=== PATIENT | female | born 1935 | race Caucasian/White ===

== ENCOUNTER → 2017-01-04 | Outpatient (REF) | payer MEDICARE, OTHER ==
[~2017-01-04] MED LIST: /ONDA4TA; ACET65TA; LIMBREL; LODINE; MACROBID; Metamucil; OMEP20TA7; PAXI20TA; PREG25CA; TRAM50TA2; TYLENOL #3; [UNRECOGNIZED DRUG - CODE]
[2017-01-04 15:12] LABS: BASO # 0.1 10^3/uL (0.0-0.2); BASO % 0.7 % (0.0-1.0); EOS # 0.1 10^3/uL (0.0-0.50); EOS % 0.6 % (0.0-3.0); IMMATURE GRANULOCYTE % 0.2 % (0-0); LYMPH # 2.6 10^3/uL (1.5-4.5); LYMPH % 29.3 % (24.0-44.0); MEAN CORPUSCULAR HEMOGLOBIN 30.9 pg (27.0-33.0); MEAN CORPUSCULAR HGB CONC 32.8 g/dl (32.0-36.5); MEAN CORPUSCULAR VOLUME 94.3 fl (80.0-96.0); MONO # 0.6 10^3/uL (0.0-0.8); MONO % 7.2 % (0.0-5.0); NEUTROPHILS # 5.5 10^3/uL (1.8-7.7); PLATELET COUNT, AUTOMATED 315 10^3/uL (150-450); RED CELL DISTRIBUTION WIDTH 13.6 % (11.5-14.5); WHITE BLOOD COUNT 8.8 10^3/uL (4.0-10.0)
[2017-01-04 15:42] LABS: ALBUMIN 3.9 GM/DL (3.2-5.2); ALBUMIN/GLOBULIN RATIO 1.11 (1.00-1.93); ALKALINE PHOSPHATASE 97 U/L (45-117); ALT/SGPT 16 U/L (12-78); AMYLASE 101 U/L (25-115); ANION GAP 5 MEQ/L (8-16); AST/SGOT 12 U/L (7-37); BILIRUBIN,TOTAL 0.4 MG/DL (0.2-1.0); BLOOD UREA NITROGEN 14 MG/DL (7-18); CALCIUM LEVEL 9.7 MG/DL (8.8-10.2); CARBON DIOXIDE LEVEL 32 MEQ/L (21-32); CHLORIDE LEVEL 101 MEQ/L (98-107); CREATININE FOR GFR 0.68 MG/DL (0.55-1.02); GLOMERULAR FILTRATION RATE > 60.0 (>32); GLUCOSE, FASTING 73 MG/DL (83-110); POTASSIUM SERUM 4.3 MEQ/L (3.5-5.1); SODIUM LEVEL 138 MEQ/L (136-145); TOTAL PROTEIN 7.4 GM/DL (6.4-8.2)
== END ==
LOC: M LABDRAW1 14:48
PROVIDERS: ATTEND Family Medicine
DX: R10.84 Generalized abdominal pain (principal)

== ENCOUNTER → 2017-02-04 | Outpatient (CLI) | payer MEDICARE, OTHER ==
[2017-02-04 20:51] LABS: BLOOD UREA NITROGEN 24 MG/DL (7-18); CREATININE FOR GFR 0.68 MG/DL (0.55-1.02); GLOMERULAR FILTRATION RATE > 60.0 (>32)
== END ==
LOC: M ADAMS 14:25
PROVIDERS: ATTEND Pain Medicine Interventional Pain Medicine
DX: M96.1 Postlaminectomy syndrome, not elsewhere classified (principal); M46.1 Sacroiliitis, not elsewhere classified; M79.1 Myalgia; M43.16 Spondylolisthesis, lumbar region; M51.37 Other intervertebral disc degeneration, lumbosacral region; M47.816 Spondylosis without myelopathy or radiculopathy, lumbar region; M51.27 Other intervertebral disc displacement, lumbosacral region

== ENCOUNTER → 2017-04-08 | Outpatient (CLI) | payer MEDICARE, OTHER ==
[2017-04-08 19:50] LABS: BASO % 0.5 % (0.0-1.0); EOS % 0.1 % (0.0-3.0); HEMATOCRIT 44.4 % (36.0-47.0); HEMOGLOBIN 14.9 g/dl (12.0-16.0); IMMATURE GRANULOCYTE % 0.4 % (0-3.0); LYMPH # 1.7 10^3/uL (1.5-4.5); LYMPH % 21.1 % (24.0-44.0); MEAN CORPUSCULAR HEMOGLOBIN 30.9 pg (27.0-33.0); MEAN CORPUSCULAR HGB CONC 33.6 g/dl (32.0-36.5); MEAN CORPUSCULAR VOLUME 92.1 fl (80.0-96.0); MONO # 0.6 10^3/uL (0.0-0.8); MONO % 7.6 % (0.0-5.0); NEUTROPHILS # 5.6 10^3/uL (1.8-7.7); NEUTROPHILS % 70.3 % (36.0-66.0); PLATELET COUNT, AUTOMATED 267 10^3/uL (150-450); RED BLOOD COUNT 4.82 10^6/uL (4.00-5.40); RED CELL DISTRIBUTION WIDTH 13.2 % (11.5-14.5)
== END ==
LOC: M ADAMS 16:41
DX: J20.9 Acute bronchitis, unspecified (principal)
CPT/HCPCS: 85025

== ENCOUNTER 2018-02-07 08:41 | Day surgery (SDC) | payer MEDICARE, BC, OTHER ==
[~2018-02-07] VITALS: Ht 157.5 cm; Wt 53.1 kg
[~2018-02-07 08:41] MED LIST changes: +CILO100T PO; +DULO1CAP3 PO; +IBUPOTC PO; +MODU5TA PO; +PREG25CA PO
[2018-02-07] MEDS ORDERED: NS 1,000 ML IV ONE (09:00)
[2018-02-07] MEDS ORDERED: LIDOCAINE 2% INJ 100 MG/5 ML SYRINGE As Ordered ONE (09:56)
[2018-02-07] MEDS ORDERED: fentaNYL 100 MCG/2 ML INJECTION (J3010) As Ordered ONE (09:57)
[2018-02-07] MEDS ORDERED: PROPOFOL 500 MG/50 ML VIAL As Ordered ONE (09:57)
--- NOTE | 2018-02-07 10:42 | ROOR ---
Patient Name: Odalys Pickard Procedure Date: 02/07/2018 9:45 AM Date of : 1935 Age: 82 Room: [facility] Gender: Female Note Status: Finalized Procedure: Upper GI endoscopy Indications: Epigastric abdominal pain, Dyspepsia Providers: Juan Jose Griggs MD Referring MD: Tra Hernandez MD Requesting Provider: Medicines: Monitored Anesthesia Care Complications: No immediate complications. Procedure: Pre-Anesthesia Assessment: - Prior to the procedure, a History and Physical was performed, and patient medications and allergies were reviewed. The patient is competent. The risks and benefits of the procedure and the sedation options and risks were discussed with the patient. All questions were answered and informed consent was obtained. Patient identification and proposed procedure were verified by the physician, the nurse and the anesthesiologist in the procedure room. Mental Status Examination: alert and oriented. Airway Examination: normal oropharyngeal airway and neck mobility. Respiratory Examination: clear to auscultation. CV Examination: normal. Prophylactic Antibiotics: The patient does not require prophylactic antibiotics. Prior Anticoagulants: The patient has taken no previous anticoagulant or antiplatelet agents. ASA Grade Assessment: III - A patient with severe systemic disease. After reviewing the risks and benefits, the patient was deemed in satisfactory condition to undergo the procedure. The anesthesia plan was to use monitored anesthesia care (MAC). Immediately prior to administration of medications, the patient was re-assessed for adequacy to receive sedatives. The heart rate, respiratory rate, oxygen saturations, blood pressure, adequacy of pulmonary ventilation, and response to care were monitored throughout the procedure. The physical status of the patient was re-assessed after the procedure. The Endoscope was introduced through the mouth, and advanced to the second part of duodenum. The upper GI endoscopy was accomplished without difficulty. The patient tolerated the procedure well. Findings: The examined esophagus was normal. Diffuse moderate inflammation characterized by erythema, granularity and linear erosions was found in the gastric body and in the gastric antrum. Biopsies were taken with a cold forceps for Helicobacter pylori testing. Biopsies were taken with a cold forceps for histology. Verification of patient identification for the specimen was done by the physician and nurse using the patient's name, date and medical record number. The duodenal bulb and second portion of the duodenum were normal. Impression: - Normal esophagus. - Gastritis. Biopsied. - Normal duodenal bulb and second portion of the duodenum. Recommendation: - Patient has a contact number available for emergencies. The signs and symptoms of potential delayed complications were discussed with the patient. Return to normal activities tomorrow. Written discharge instructions were provided to the patient. - High fiber diet. - Continue present medications. - Await pathology results. 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 - Based on the biopsy results you will receive a phone call from GI clinic in 2-3 weeks to review the pathology results AND/OR your results will be faxed to your Primary care physician. - Return to primary care physician. Juan Jose Griggs MD Juan Jose Griggs MD 02/07/2018 10:41:30 AM This report has been signed electronically. Number of Addenda: 0 Note Initiated On: 02/07/2018 9:45 AM Estimated Blood Loss: Estimated blood loss was minimal.
--- NOTE | 2018-02-07 10:46 | ROOR ---
Patient Name: Odalys Pickard Procedure Date: 02/07/2018 9:45 AM Date of : 1935 Age: 82 Room: [facility] Gender: Female Note Status: Finalized Procedure: Colonoscopy Indications: Personal history of colonic polyps, Change in bowel habits, Constipation Providers: Juan Jose Griggs MD Referring MD: Tra Hernandez MD Requesting Provider: Medicines: Monitored Anesthesia Care Complications: No immediate complications. Procedure: Pre-Anesthesia Assessment: - Prior to the procedure, a History and Physical was performed, and patient medications and allergies were reviewed. The patient is competent. The risks and benefits of the procedure and the sedation options and risks were discussed with the patient. All questions were answered and informed consent was obtained. Patient identification and proposed procedure were verified by the physician, the nurse and the anesthesiologist in the procedure room. Mental Status Examination: alert and oriented. Airway Examination: normal oropharyngeal airway and neck mobility. Respiratory Examination: clear to auscultation. CV Examination: normal. Prophylactic Antibiotics: The patient does not require prophylactic antibiotics. Prior Anticoagulants: The patient has taken no previous anticoagulant or antiplatelet agents. ASA Grade Assessment: III - A patient with severe systemic disease. After reviewing the risks and benefits, the patient was deemed in satisfactory condition to undergo the procedure. The anesthesia plan was to use monitored anesthesia care (MAC). Immediately prior to administration of medications, the patient was re-assessed for adequacy to receive sedatives. The heart rate, respiratory rate, oxygen saturations, blood pressure, adequacy of pulmonary ventilation, and response to care were monitored throughout the procedure. The physical status of the patient was re-assessed after the procedure. The Colonoscope was introduced through the anus and advanced to the terminal ileum, with identification of the appendiceal orifice and IC valve. The colonoscopy was performed without difficulty. The patient tolerated the procedure well. The quality of the bowel preparation was good. The terminal ileum, ileocecal valve, appendiceal orifice, and rectum were photographed. Scope insertion time was 4 minutes. Scope withdrawal time was 10 minutes. The total duration of the procedure was 14 minutes. Findings: The perianal and digital rectal examinations were normal. Two sessile polyps were found in the cecum. The polyps were 10 to 12 mm in size. These polyps were removed with a cold snare. Resection and retrieval were complete. To close a defect after polypectomy, three hemostatic clips were successfully placed. There was no bleeding at the end of the procedure. Verification of patient identification for the specimen was done by the physician and nurse using the patient's name, date and medical record number. Estimated blood loss was minimal. Two sessile polyps were found in the ascending colon. The polyps were 5 to 8 mm in size. These polyps were removed with a cold snare. Resection and retrieval were complete. Multiple small and large-mouthed diverticula were found from sigmoid to descending colon. There was no evidence of diverticular bleeding. Non-bleeding external and internal hemorrhoids were found during endoscopy. The hemorrhoids were medium-sized. Retroflexion in the rectum was not performed due to anatomy. Impression: - Two 10 to 12 mm polyps in the cecum, removed with a cold snare. Resected and retrieved. Clips were placed. - Two 5 to 8 mm polyps in the ascending colon, removed with a cold snare. Resected and retrieved. - Moderate diverticulosis from sigmoid to descending colon. There was no evidence of diverticular bleeding. - Non-bleeding external and internal hemorrhoids. Recommendation: - Patient has a contact number available for emergencies. The signs and symptoms of potential delayed complications were discussed with the patient. Return to normal activities tomorrow. Written discharge instructions were provided to the patient. - High fiber diet. - Continue present medications. - Await pathology results. - Repeat colonoscopy date to be determined after pending pathology results are reviewed depending on clinical and functional status. - Based on the biopsy results you will receive a phone call from GI clinic in 2-3 weeks to review the pathology results AND/OR your results will be faxed to your Primary care physician. - Return to primary care physician. Juan Jose Griggs MD Juan Jose Griggs MD 02/07/2018 10:46:25 AM This report has been signed electronically. Number of Addenda: 0 Note Initiated On: 02/07/2018 9:45 AM Estimated Blood Loss: Estimated blood loss was minimal.
[2018-02-07 11:10] VITALS: BP 146/74
== END 2018-02-07 11:15 | disposition home or self-care (01) ==
LOC: M OPP 08:41
PROVIDERS: ATTEND Internal Medicine Gastroenterology
DX: D12.0 Benign neoplasm of cecum (principal); D12.2 Benign neoplasm of ascending colon; K64.8 Other hemorrhoids; Z86.010 Personal history of colon polyps; R19.4 Change in bowel habit; K29.70 Gastritis, unspecified, without bleeding; R10.13 Epigastric pain; I10 Essential (primary) hypertension; M79.7 Fibromyalgia; M12.9 Arthropathy, unspecified; F32.9 Major depressive disorder, single episode, unspecified; F41.9 Anxiety disorder, unspecified; F17.210 Nicotine dependence, cigarettes, uncomplicated; Z79.899 Other long term (current) drug therapy; Z88.0 Allergy status to penicillin; Z88.1 Allergy status to other antibiotic agents
CPT/HCPCS: 43239; 45385; 88305; J3010

== ENCOUNTER → 2018-11-21 | Outpatient (REF) | payer MEDICARE, OTHER ==
[~2018-11-21] MED LIST changes: -/ONDA4TA; -DULO1CAP3 PO; +DULO1CAP6 PO; +ONDA-1
[2018-11-21 14:18] LABS: HEMATOCRIT 46.8 % (36.0-47.0); MEAN CORPUSCULAR HEMOGLOBIN 32.9 pg (27.0-33.0); MEAN CORPUSCULAR HGB CONC 34.2 g/dl (32.0-36.5); MEAN CORPUSCULAR VOLUME 96.3 fl (80.0-96.0); PLATELET COUNT, AUTOMATED 280 10^3/uL (150-450); RED BLOOD COUNT 4.86 10^6/uL (4.00-5.40); WHITE BLOOD COUNT 7.5 10^3/uL (4.0-10.0)
[2018-11-21 14:55] LABS: ALBUMIN 3.9 GM/DL (3.2-5.2); ALT/SGPT 19 U/L (12-78); BILIRUBIN,TOTAL 0.5 MG/DL (0.2-1.0); BLOOD UREA NITROGEN 18 MG/DL (7-18); CALCIUM LEVEL 9.7 MG/DL (8.8-10.2); CARBON DIOXIDE LEVEL 31 MEQ/L (21-32); CHLORIDE LEVEL 100 MEQ/L (98-107); CREATININE FOR GFR 0.68 MG/DL (0.55-1.30); GLOMERULAR FILTRATION RATE > 60.0 (>32); GLUCOSE, FASTING 75 MG/DL (70-100); POTASSIUM SERUM 4.5 MEQ/L (3.5-5.1); SODIUM LEVEL 137 MEQ/L (136-145); TOTAL PROTEIN 7.4 GM/DL (6.4-8.2)
== END ==
LOC: M LABDRAW1 13:53
PROVIDERS: ATTEND Family Medicine
DX: Z79.899 Other long term (current) drug therapy (principal)

== ENCOUNTER → 2018-12-25 | Outpatient (CLI) | payer MEDICARE, BC, OTHER ==
[2018-12-25 12:20] LABS: BLOOD UREA NITROGEN 24 MG/DL (7-18); CALCIUM LEVEL 9.6 MG/DL (8.8-10.2); CARBON DIOXIDE LEVEL 29 MEQ/L (21-32); CHLORIDE LEVEL 102 MEQ/L (98-107); CREATININE FOR GFR 0.72 MG/DL (0.55-1.30); GLOMERULAR FILTRATION RATE > 60.0 (>32); GLUCOSE, FASTING 81 MG/DL (70-100); POTASSIUM SERUM 4.2 MEQ/L (3.5-5.1); SODIUM LEVEL 138 MEQ/L (136-145)
--- NOTE | 2018-12-25 21:49 | ECGEPIP ---
[facility] Test Date: 2018-12-25 Pat Name: GEE MOTT Department: Room: - Gender: Female Carpenter Rough: [facility] : 1935 Requested By: SACHA Liu Order Number: [id number] Reading MD: Dalton Long Measurements Intervals [place] Rate: 85 P: 83 TX: 137 QRS: 87 QRSD: 84 T: 71 QT: 362 QTc: 431 Interpretive Statements Normal sinus rhythm Left atrial enlargement Nonspecific ST-T wave abnormalities Prominent voltage, probable LVH Comparison tracing not on file Electronically Signed on 12-25-2018 21:49:32 EST by Dalton Long
== END ==
LOC: M LAB 10:23
PROVIDERS: ATTEND Orthopaedic Surgery Hand Surgery
DX: Z01.810 Encounter for preprocedural cardiovascular examination (principal)

== ENCOUNTER → 2019-01-10 | Outpatient (REF) | payer MEDICARE, OTHER ==
[2019-01-10 12:44] LABS: HEMATOCRIT 44.4 % (36.0-47.0); HEMOGLOBIN 14.5 g/dl (12.0-15.5); MEAN CORPUSCULAR HEMOGLOBIN 32.3 pg (27.0-33.0); MEAN CORPUSCULAR HGB CONC 32.7 g/dl (32.0-36.5); MEAN CORPUSCULAR VOLUME 98.9 fl (80.0-96.0); PLATELET COUNT, AUTOMATED 238 10^3/uL (150-450); RED BLOOD COUNT 4.49 10^6/uL (4.00-5.40); WHITE BLOOD COUNT 7.5 10^3/uL (4.0-10.0)
== END ==
LOC: M LABDRAW1 12:02
PROVIDERS: ATTEND Family Medicine
DX: Z01.818 Encounter for other preprocedural examination (principal)

== ENCOUNTER → 2019-01-17 | Outpatient (REF) | payer MEDICARE, OTHER | LOC: M LAB REF 18:59 | PROVIDERS: ATTEND Orthopaedic Surgery Hand Surgery | DX: M67.432 Ganglion, left wrist (principal); M19.032 Primary osteoarthritis, left wrist ==

== ENCOUNTER 2020-03-02 17:19 | Emergency (ER) | payer MEDICARE, OTHER ==
[~2020-03-02] VITALS: Ht 157.5 cm; Wt 54.5 kg
[2020-03-02] MEDS ORDERED: NS 1,000 ML IV SCH (18:09)
[2020-03-02] MEDS ORDERED: ONDANSETRON 4MG/2ML VIAL IV ONE (18:15)
[2020-03-02] MEDS ORDERED: PANTOPRAZOLE 40MG VIAL (C9113 PER 1) IV ONE (18:15)
[2020-03-02] MEDS ORDERED: LIDOCAINE 2% 5ML JELLY UROJET TOP ONE (18:15)
[2020-03-02 18:30] VITALS: BP 150/63
[2020-03-02 18:34] LABS: BASO # 0.1 10^3/uL (0.0-0.2); BASO % 0.7 % (0.0-1.0); EOS # 0.2 10^3/uL (0.0-0.5); HEMATOCRIT 42.8 % (36.0-47.0); HEMOGLOBIN 13.8 g/dl (12.0-15.5); LYMPH % 33.6 % (24.0-44.0); MEAN CORPUSCULAR HEMOGLOBIN 31.4 pg (27.0-33.0); MEAN CORPUSCULAR HGB CONC 32.2 g/dl (32.0-36.5); MEAN CORPUSCULAR VOLUME 97.3 fl (80.0-96.0); MONO # 0.7 10^3/uL (0.0-0.8); MONO % 7.9 % (0.0-5.0); NEUTROPHILS # 4.9 10^3/uL (1.5-8.5); NEUTROPHILS % 55.5 % (36.0-66.0); PLATELET COUNT, AUTOMATED 179 10^3/uL (150-450); WHITE BLOOD COUNT 8.8 10^3/uL (4.0-10.0)
[2020-03-02 18:48] LABS: INR 0.91; PROTHROMBIN TIME 12.5 SECONDS (12.5-14.3)
[2020-03-02 19:02] LABS: ALBUMIN 3.5 GM/DL (3.2-5.2); ALT/SGPT 13 U/L (12-78); BILIRUBIN,DIRECT 0.1 MG/DL (0.0-0.2); BILIRUBIN,TOTAL 0.4 MG/DL (0.2-1.0); BLOOD UREA NITROGEN 23 MG/DL (7-18); CALCIUM LEVEL 9.1 MG/DL (8.8-10.2); CARBON DIOXIDE LEVEL 29 MEQ/L (21-32); CHLORIDE LEVEL 105 MEQ/L (98-107); CREATININE FOR GFR 0.73 MG/DL (0.55-1.30); GLOMERULAR FILTRATION RATE > 60.0 (>32); GLUCOSE, FASTING 78 MG/DL (70-100); LIPASE 156 U/L (73-393); POTASSIUM SERUM 4.5 MEQ/L (3.5-5.1); SODIUM LEVEL 138 MEQ/L (136-145); TOTAL PROTEIN 6.5 GM/DL (6.4-8.2)
[2020-03-02] MEDS ORDERED: BACTRIM 160MG/800MG DS TAB PO ONE (19:15)
--- NOTE | 2020-03-02 19:25 | REPVR ---
PROCEDURE INFORMATION: Exam: CT Abdomen And Pelvis Without Contrast Exam date and time: 03/02/2020 7:07 PM Age: 84 years old Clinical indication: Abdominal pain; Prior surgery; Additional info: Abd pain TECHNIQUE: Imaging protocol: Computed tomography of the abdomen and pelvis without contrast. Radiation optimization: All CT scans at this facility use at least one of these dose optimization techniques: automated exposure control; mA and/or kV adjustment per patient size (includes targeted exams where dose is matched to clinical indication); or iterative reconstruction. COMPARISON: No relevant prior studies available. FINDINGS: Lungs: Bibasilar atelectasis. Liver: Normal. No mass. Gallbladder and bile ducts: There has been a cholecystectomy. Pancreas: Normal. No ductal dilation. Spleen: Normal. No splenomegaly. Adrenal glands: Normal. No mass. Kidneys and ureters: Thickening of the colonic wall of the anorectal junction, findings may indicate the presence of hemorrhoids or mass. Posterior compartment pelvic floor prolapse with the anorectal junction positioned 3.9 cm below the pubococcygeal line. Stomach and bowel: Moderate diverticulosis is present in the distal colon. No diverticulitis. Appendix: No evidence of appendicitis. Intraperitoneal space: Unremarkable. No free air. No significant fluid collection. Vasculature: The aortoiliac vessels demonstrate moderate atherosclerotic calcification. Lymph nodes: Unremarkable. No enlarged lymph nodes. Urinary bladder: There is thickening of the bladder wall with perivesicular inflammatory changes consistent with acute cystitis. Reproductive: There has been a hysterectomy. Bones/joints: Status post kyphoplasties L1-L3. Status post posterior interbody fusion from L3-L5 with bilateral laminectomy at L4. Soft tissues: Unremarkable. Other findings: Osteoporosis. IMPRESSION: 1. There has been a cholecystectomy. 2. Moderate diverticulosis is present in the distal colon. No diverticulitis. 3. There has been a hysterectomy. 4. There is thickening of the bladder wall with perivesicular inflammatory changes consistent with acute cystitis. 5. Thickening of the colonic wall of the anorectal junction, findings may indicate the presence of hemorrhoids or mass. Posterior compartment pelvic floor prolapse with the anorectal junction positioned 3.9 cm below the pubococcygeal line. Electronically signed by: Isac Ivey On 03/02/2020 19:26:24 PM
[2020-03-02] MEDS ORDERED: PHENAZOPYRIDINE 100 MG TAB PO ONE (19:45)
[2020-03-02] MEDS ORDERED: PYRI1TAB5 PO (19:46)
[2020-03-02] MEDS ORDERED: BACT800T5 PO (19:46)
--- NOTE | 2020-03-03 06:33 | ED PDOC ---
Post-Departure Follow-Up dr hicks faxed formal report of ct abd/p for fu Jamie Medina MD Mar 03, 2020 06:33
== END 2020-03-02 20:13 | disposition home or self-care (01) ==
LOC: M ED 17:19
DX: N30.00 Acute cystitis without hematuria (principal); I51.9 Heart disease, unspecified; I10 Essential (primary) hypertension; F17.200 Nicotine dependence, unspecified, uncomplicated; K57.30 Diverticulosis of large intestine without perforation or abscess without bleeding; Z79.899 Other long term (current) drug therapy; Z88.0 Allergy status to penicillin; Z88.5 Allergy status to narcotic agent; Z88.8 Allergy status to other drugs, medicaments and biological substances
CPT/HCPCS: 51701; 74176; 80048; 80076; 81001; 83605; 83690; 85025; 85610; 87086; 96361; 96374; 96375; 99284; C9113; J2405

== ENCOUNTER 2020-06-04 11:55 | Emergency (ER) | payer MEDICARE, BC, OTHER ==
[~2020-06-04 11:55] MED LIST changes: +BACT800T5 PO; +PYRI1TAB5 PO
[2020-06-04] MEDS ORDERED: HYDR50TAB (12:10)
[2020-06-04] MEDS ORDERED: MORPHINE 2 MG/ML 1ML VIAL (J2270) IV ONE (13:00)
[2020-06-04 13:27] LABS: BASO # 0.1 10^3/uL (0.0-0.2); BASO % 0.7 % (0.0-1.0); EOS # 0.1 10^3/uL (0.0-0.5); EOS % 0.7 % (0.0-3.0); HEMOGLOBIN 15.2 g/dl (12.0-15.5); LYMPH # 2.4 10^3/uL (1.5-5.0); LYMPH % 36.1 % (24.0-44.0); MEAN CORPUSCULAR HEMOGLOBIN 32.1 pg (27.0-33.0); MEAN CORPUSCULAR HGB CONC 33.8 g/dl (32.0-36.5); MEAN CORPUSCULAR VOLUME 94.9 fl (80.0-96.0); MONO # 0.5 10^3/uL (0.0-0.8); MONO % 6.7 % (2.0-8.0); NEUTROPHILS # 3.7 10^3/uL (1.5-8.5); NEUTROPHILS % 55.5 % (36.0-66.0); PLATELET COUNT, AUTOMATED 276 10^3/uL (150-450); RED BLOOD COUNT 4.74 10^6/uL (4.00-5.40); WHITE BLOOD COUNT 6.7 10^3/uL (4.0-10.0)
[2020-06-04 13:37] LABS: INR 0.98; PROTHROMBIN TIME 13.2 SECONDS (12.5-14.3)
[2020-06-04 13:38] LABS: PARTIAL THROMBOPLASTIN TIME 29.4 SECONDS (24.2-38.5)
--- NOTE | 2020-06-04 13:38 | REP ---
INDICATION: leg pain. COMPARISON: None. TECHNIQUE: AP and lateral FINDINGS: No acute fracture or destructive osseous lesion. IMPRESSION: Negative exam <Electronically signed by Darren Crawford > 06/04/20 [id number]
--- NOTE | 2020-06-04 13:39 | REP ---
INDICATION: leg pain. COMPARISON: 07/28/2006 TECHNIQUE: AP and lateral views FINDINGS: There is no acute fracture or destructive osseous lesion. Mild degenerative changes seen involving the hip and knee. IMPRESSION: No evidence for fracture <Electronically signed by Darren Crawford > 06/04/20 [id number]
--- NOTE | 2020-06-04 13:41 | REP ---
INDICATION: leg pain. COMPARISON: 08/25/2016 TECHNIQUE: Five views FINDINGS: There is no significant change compared to the prior exam. Lumbar transpedicular screws and internal fixators again noted status quo. Advanced degenerative disc disease and lumbar marginal osteophytosis is stable. The bones are demineralized. There is no change in appearance of vertebral body height or alignment.. IMPRESSION: Stable appearing chronic changes. <Electronically signed by Darren Crawford > 06/04/20 [id number]
--- NOTE | 2020-06-04 13:46 | REP ---
INDICATION: leg pain. COMPARISON: N\A TECHNIQUE: Multiple ultrasonographic images of the deep venous structures of the left thigh were obtained from the common femoral vein to the popliteal vein along with Doppler interrogation and color flow Doppler images. FINDINGS: There is no abnormal echogenic material seen within any of the visualized deep venous structures that would suggest acute thrombosis. Coaptation is unremarkable throughout. Doppler interrogation shows an expected response to respiratory variability and augmentation. The color flow images show what appears to be a normal vascular pattern throughout. IMPRESSION: There is no ultrasonographic evidence of deep venous thrombosis involving any of the visualized deep venous structures of the left thigh, as described above. <Electronically signed by Darren Crawford > 06/04/20 [id number]
[2020-06-04 13:58] LABS: BLOOD UREA NITROGEN 14 MG/DL (7-18); CALCIUM LEVEL 10.3 MG/DL (8.8-10.2); CARBON DIOXIDE LEVEL 29 MEQ/L (21-32); CHLORIDE LEVEL 102 MEQ/L (98-107); CPK CREATINE PHOSPHOKINASE 55 U/L (26-192); GLOMERULAR FILTRATION RATE > 60.0 (>32); GLUCOSE, FASTING 77 MG/DL (70-100); POTASSIUM SERUM 3.9 MEQ/L (3.5-5.1); SODIUM LEVEL 136 MEQ/L (136-145)
[2020-06-04] MEDS ORDERED: ULTR50TA8 PO (14:36)
[2020-06-04 15:14] VITALS: BP 156/69
== END 2020-06-04 15:23 | disposition home or self-care (01) ==
LOC: M ED 11:55 → EDBD 11:55 → M ED 15:23
DX: M51.36 Other intervertebral disc degeneration, lumbar region (principal); M54.32 Sciatica, left side; I10 Essential (primary) hypertension; Z79.899 Other long term (current) drug therapy; Z88.0 Allergy status to penicillin; Z88.1 Allergy status to other antibiotic agents; Z88.5 Allergy status to narcotic agent; F17.210 Nicotine dependence, cigarettes, uncomplicated
CPT/HCPCS: 72110; 73552; 73590; 80048; 82550; 85025; 85610; 85730; 93971; 96374; 99284; J2270

== ENCOUNTER → 2021-03-20 | Outpatient (CLI) | payer MEDICARE, BC, OTHER ==
[~2021-03-20] MED LIST changes: +HYDR50TAB; +ULTR50TA8 PO
== END ==
LOC: M RAD 11:56
PROVIDERS: ATTEND Surgery
DX: I70.235 Atherosclerosis of native arteries of right leg with ulceration of other part of foot (principal); L97.512 Non-pressure chronic ulcer of other part of right foot with fat layer exposed

== ENCOUNTER → 2021-04-07 | Outpatient (POV) | payer MEDICARE, BC, OTHER ==
[~2021-04-07] VITALS: Ht 157.5 cm; Wt 54.5 kg
[2021-04-07 13:25] VITALS: BP 161/84
== END ==
LOC: M IRPOV 13:13
PROVIDERS: ATTEND Radiology Diagnostic Radiology
DX: I70.92 Chronic total occlusion of artery of the extremities (principal); L97.519 Non-pressure chronic ulcer of other part of right foot with unspecified severity; M20.41 Other hammer toe(s) (acquired), right foot; M79.604 Pain in right leg; F17.210 Nicotine dependence, cigarettes, uncomplicated; Z88.0 Allergy status to penicillin; Z88.1 Allergy status to other antibiotic agents; Z88.5 Allergy status to narcotic agent

== ENCOUNTER → 2021-04-15 | Outpatient (CLI) | payer MEDICARE, BC, OTHER ==
[~2021-04-15] MED LIST changes: +ISOVUE-300 61% 50ML VIAL As Ordered ONE; +LIDOCAINE 1% MDV 20ML VIAL As Ordered ONE; +MIDAZOLAM INJ 2MG/2ML VIAL (J2250 PER 1MG) As Ordered ONE; +NS 1,000 ML IV SCH; +diphenhydrAMINE 50MG/ML VIAL (J1200) As Ordered ONE; +fentaNYL 100 MCG/2 ML INJECTION As Ordered ONE
[2021-04-15 15:00] VITALS: BP 145/68
== END ==
LOC: M IRPRO 07:06
PROVIDERS: ATTEND Radiology Diagnostic Radiology
DX: I70.221 Atherosclerosis of native arteries of extremities with rest pain, right leg (principal); I70.235 Atherosclerosis of native arteries of right leg with ulceration of other part of foot; L97.512 Non-pressure chronic ulcer of other part of right foot with fat layer exposed; I70.92 Chronic total occlusion of artery of the extremities; Z88.0 Allergy status to penicillin; Z88.1 Allergy status to other antibiotic agents; Z88.5 Allergy status to narcotic agent
CPT/HCPCS: 36246; 75630; 75774; 99152; 99153; C1769; C1887; C1894; J1644; J2250; J3010; Q9967

== ENCOUNTER → 2021-07-30 | Outpatient (CLI) | payer MEDICARE, BC, OTHER ==
[~2021-07-30] MED LIST changes: -ISOVUE-300 61% 50ML VIAL As Ordered ONE; -LIDOCAINE 1% MDV 20ML VIAL As Ordered ONE; -MIDAZOLAM INJ 2MG/2ML VIAL (J2250 PER 1MG) As Ordered ONE; -NS 1,000 ML IV SCH; -diphenhydrAMINE 50MG/ML VIAL (J1200) As Ordered ONE; -fentaNYL 100 MCG/2 ML INJECTION As Ordered ONE
== END ==
LOC: M LABSMTC 10:17
PROVIDERS: ATTEND Surgery Vascular Surgery
DX: U07.1 COVID-19 (principal)

== ENCOUNTER 2023-06-30 13:09 | Inpatient (IN) | payer MEDICARE, BC, OTHER ==
[~2023-06-30] VITALS: Ht 157.5 cm; Wt 48.8 kg
[~2023-06-30 13:09] MED LIST changes: -CILO100T PO; +CILO100T3 PO
[2023-06-30] MEDS: LIDOCAINE 2% 5ML JELLY UROJET TOP ONE (13:35)
[2023-06-30] MEDS ORDERED: ISOVUE-370 76% 100ML VIAL As Ordered ONE (13:44)
[2023-06-30] MEDS: NS 1,000 ML IV ONE (14:20)
[2023-06-30 14:27] LABS: HEMATOCRIT 35.6 % (36.0-47.0); HEMOGLOBIN 12.2 g/dl (12.0-15.5); MEAN CORPUSCULAR HEMOGLOBIN 32.4 pg (27.0-33.0); MEAN CORPUSCULAR HGB CONC 34.3 g/dl (32.0-36.5); MEAN CORPUSCULAR VOLUME 94.4 fl (80.0-96.0); PLATELET COUNT, AUTOMATED 123 10^3/uL (150-450); RED BLOOD COUNT 3.77 10^6/uL (4.00-5.40); WHITE BLOOD COUNT 5.9 10^3/uL (4.0-10.0)
[2023-06-30 14:28] LABS: VENOUS BASE EXCESS 3.4 (-2.0-2.0); VENOUS HCO3 29.1 MMOL/L (23.0-27.0); VENOUS PARTIAL PRESSURE CO2 49.1 mmHg (38.0-50.0); VENOUS PARTIAL PRESSURE O2 30.1 mmHg (30.0-50.0); VENOUS PH 7.391 UNITS (7.330-7.430); VENOUS STANDARD HCO3 26.5 MMOL/L; VENOUS TOTAL CO2 30.6 MMOL/L (24.0-28.0)
[2023-06-30 14:39] LABS: INR 0.97; PARTIAL THROMBOPLASTIN TIME 32.2 SECONDS (24.8-34.2); PROTHROMBIN TIME 12.6 SECONDS (12.5-14.5)
[2023-06-30 14:45] LABS: CK-MB VALUE MASS < 1.0 NG/ML (<3.6)
[2023-06-30 14:46] LABS: LIPASE 15 U/L (12-53)
[2023-06-30 14:48] LABS: ALBUMIN 2.2 G/DL (3.2-5.2); ALKALINE PHOSPHATASE 51 U/L (46-116); ALT/SGPT 10 U/L (7.0-40); AST/SGOT 17 U/L (<34); BILIRUBIN,DIRECT 0.2 MG/DL (<0.4); BILIRUBIN,TOTAL 0.5 MG/DL (0.3-1.2); BLOOD UREA NITROGEN 18 MG/DL (9-23); CALCIUM LEVEL 8.3 MG/DL (8.3-10.6); CARBON DIOXIDE LEVEL 33 MMOL/L (20-31); CHLORIDE LEVEL 108 MMOL/L (98-107); CREATININE FOR GFR 0.61 MG/DL (0.55-1.30); GLOMERULAR FILTRATION RATE > 60.0 (>32); GLUCOSE, FASTING 76 MG/DL (74-106); MAGNESIUM LEVEL 1.8 MG/DL (1.8-2.4); POTASSIUM SERUM 3.9 MMOL/L (3.5-5.1); SODIUM LEVEL 141 MMOL/L (136-145); TOTAL PROTEIN 5.7 G/DL (5.7-8.2)
[2023-06-30 14:53] LABS: PROCALCITONIN <0.04 ng/ml
[2023-06-30 14:54] LABS: CPK CREATINE PHOSPHOKINASE 34 U/L (34-145); MB/CK RELATIVE INDEX 2.94 (< OR =4)
[2023-06-30 15:06] LABS: ATYPICAL LYMPH 7 % (0-5); BASOPHILS 2 % (0-1); LYMPHOCYTES 16 % (16-44); MONOCYTES 6 % (0-5); NEUTROPHILS 69 % (28-66)
[2023-06-30 15:07] LABS: PLATELET ESTIMATE DECREASED (NORMAL)
[2023-06-30] MEDS: KCL 10MEQ IN D5/0.45NS 1000ML 1,000 ML IV SCH (15:10)
[2023-06-30 16:01] LABS: CK-MB VALUE MASS < 1.0 NG/ML (<3.6)
[2023-06-30 16:04] LABS: CPK CREATINE PHOSPHOKINASE 29 U/L (34-145); MB/CK RELATIVE INDEX 3.44 (< OR =4)
[2023-06-30] MEDS: dexAMETHasone 20MG/5ML VIAL IV ONE (16:31)
[2023-06-30] MEDS: cefTRIAXone SOD 1 GM in D5W MINI-BAG PLUS 50 ML IV ONE (16:31)
[2023-06-30] MEDS: ALBUTEROL 90 MCG/ACT 8GM HFA INHALER INH ONE (16:33)
[2023-06-30] MEDS: DOXYCYCLINE HYCLATE 100 MG in D5W MINI-BAG PLUS 100 ML IV ONE (17:10)
[2023-06-30] MEDS: REMDESIVIR 200 MG in NS 250 ML IV ONE (18:41)
[2023-06-30] MEDS: ALBUTEROL 90 MCG/ACT 8GM HFA INHALER INH SCH (20:44)
[2023-06-30] MEDS ORDERED: DEXTROSE 50% 50ML SYRINGE IV PRN (21:05)
[2023-06-30] MEDS ORDERED: GLUCAGON INJ 1MG VIAL SC PRN (21:05)
[2023-06-30] MEDS ORDERED: GLUCOSE 4 GM CHEW PO PRN (21:05)
[2023-06-30 22:03] VITALS: BP 130/66; TEMP 97.7; O2SAT 97
[2023-06-30] MEDS ORDERED: ALBUTEROL 90 MCG/ACT 8GM HFA INHALER INH PRN (22:20)
[2023-06-30] MEDS: SENOKOT S TAB PO SCH (22:23)
[2023-06-30] MEDS: PANTOPRAZOLE 40MG TAB (PROTONIX) PO SCH (22:23)
[2023-06-30] MEDS: guaiFENesin ER TABLET 600 MG TAB PO SCH (22:24)
[2023-06-30] MEDS: SUCRALFATE SUSP 1GM/10ML UD PO SCH (22:25)
[2023-06-30] MEDS: SODIUM CHLORIDE HYPERTONIC 3% 4ML NEB SOL INH SCH (23:31)
[2023-07-01] MEDS ORDERED: ALBUTEROL SULFATE 2.5MG/0.5ML INH NEB SOLN NEB SCH
[2023-07-01] MEDS: ALBUTEROL SULFATE 2.5MG/0.5ML INH NEB SOLN NEB PRN (02:45)
[2023-07-01] MEDS: DOXYCYCLINE HYCLATE 100 MG in D5W MINI-BAG PLUS 100 ML IV SCH (05:02)
[2023-07-01 05:52] VITALS: BP 131/69; TEMP 97.9; O2SAT 97
[2023-07-01] MEDS ORDERED: OMEP-173 PO (06:33)
[2023-07-01] MEDS ORDERED: NIFE1TAB52 PO (06:33)
[2023-07-01] MEDS ORDERED: ACET300T47 PO (06:33)
[2023-07-01] MEDS ORDERED: DIVA250T67 PO (06:33)
[2023-07-01] MEDS ORDERED: FURO20TA2 PO (06:33)
[2023-07-01] MEDS ORDERED: ATOR40TA75 PO (06:33)
[2023-07-01] MEDS ORDERED: ASPI-655 PO (06:33)
[2023-07-01] MEDS ORDERED: PREG150C2 PO (06:33)
[2023-07-01] MEDS ORDERED: CARV3.12 PO (06:34)
[2023-07-01] MEDS: ENOXAPARIN 30MG/0.3ML SYRINGE (J1650 PER 10MG) SC SCH (08:13)
[2023-07-01] MEDS: dexAMETHasone 20MG/5ML VIAL IV SCH (08:13)
[2023-07-01] MEDS: SYMBICORT 160/4.5MCG INHALER 6GM INH SCH (08:43)
[2023-07-01 08:44] LABS: HEMATOCRIT 36.4 % (36.0-47.0); LYMPH # 1.3 10^3/uL (1.5-5.0); LYMPH % 24.9 % (24.0-44.0); MEAN CORPUSCULAR HEMOGLOBIN 31.5 pg (27.0-33.0); MEAN CORPUSCULAR VOLUME 95.5 fl (80.0-96.0); MONO # 0.3 10^3/uL (0.0-0.8); MONO % 6.3 % (2.0-8.0); NEUTROPHILS # 3.4 10^3/uL (1.5-8.5); PLATELET COUNT, AUTOMATED 134 10^3/uL (150-450); RED BLOOD COUNT 3.81 10^6/uL (4.00-5.40); WHITE BLOOD COUNT 5.1 10^3/uL (4.0-10.0)
[2023-07-01] MEDS ORDERED: ASPI81TA26 PO (08:58)
[2023-07-01] MEDS ORDERED: MECL-136 PO (08:58)
[2023-07-01] MEDS ORDERED: HOME MED LIST COMPLETE! XX SCH (09:00)
[2023-07-01 09:05] LABS: ALBUMIN 2.1 G/DL (3.2-5.2); ALKALINE PHOSPHATASE 56 U/L (46-116); ALT/SGPT 16 U/L (7.0-40); AST/SGOT 21 U/L (<34); BILIRUBIN,DIRECT 0.1 MG/DL (<0.4); BILIRUBIN,TOTAL 0.3 MG/DL (0.3-1.2); BLOOD UREA NITROGEN 17 MG/DL (9-23); CALCIUM LEVEL 8.5 MG/DL (8.3-10.6); CARBON DIOXIDE LEVEL 29 MMOL/L (20-31); CHLORIDE LEVEL 108 MMOL/L (98-107); CREATININE FOR GFR 0.58 MG/DL (0.55-1.30); GLOMERULAR FILTRATION RATE > 60.0 (>32); GLUCOSE, FASTING 123 MG/DL (74-106); POTASSIUM SERUM 4.1 MMOL/L (3.5-5.1); SODIUM LEVEL 143 MMOL/L (136-145); TOTAL PROTEIN 5.7 G/DL (5.7-8.2)
[2023-07-01 13:55] VITALS: BP 121/56; TEMP 97.9; O2SAT 96
[2023-07-01] MEDS: cefTRIAXone SOD 1 GM in D5W MINI-BAG PLUS 50 ML IV SCH (16:17)
[2023-07-01] MEDS: REMDESIVIR 100 MG in NS 250 ML IV SCH (17:29)
[2023-07-01 20:00] VITALS: BP 123/61; TEMP 97.9; O2SAT 96
[2023-07-01] MEDS: DOXYCYCLINE HYCLATE 100MG TABLET PO SCH (20:59)
[2023-07-01] MEDS: QUEtiapine FUMARATE 25 MG TAB PO SCH (20:59)
[2023-07-02] VITALS (7 sets, daily range): BP systolic 90–155; BP diastolic 50–68; TEMP 97–98.4; O2SAT 90–96
[2023-07-02 07:48] LABS: HEMATOCRIT 33.7 % (36.0-47.0); HEMOGLOBIN 11.3 g/dl (12.0-15.5); LYMPH # 1.7 10^3/uL (1.5-5.0); LYMPH % 22.7 % (24.0-44.0); MEAN CORPUSCULAR HEMOGLOBIN 31.6 pg (27.0-33.0); MEAN CORPUSCULAR HGB CONC 33.5 g/dl (32.0-36.5); MEAN CORPUSCULAR VOLUME 94.1 fl (80.0-96.0); MONO # 0.4 10^3/uL (0.0-0.8); MONO % 5.8 % (2.0-8.0); NEUTROPHILS # 5.4 10^3/uL (1.5-8.5); PLATELET COUNT, AUTOMATED 169 10^3/uL (150-450); RED BLOOD COUNT 3.58 10^6/uL (4.00-5.40); WHITE BLOOD COUNT 7.6 10^3/uL (4.0-10.0)
[2023-07-02 08:20] LABS: BLOOD UREA NITROGEN 23 MG/DL (9-23); CALCIUM LEVEL 8.3 MG/DL (8.3-10.6); CARBON DIOXIDE LEVEL 26 MMOL/L (20-31); CHLORIDE LEVEL 112 MMOL/L (98-107); CREATININE FOR GFR 0.61 MG/DL (0.55-1.30); GLOMERULAR FILTRATION RATE > 60.0 (>32); GLUCOSE, FASTING 94 MG/DL (74-106); POTASSIUM SERUM 3.5 MMOL/L (3.5-5.1); SODIUM LEVEL 144 MMOL/L (136-145)
[2023-07-02] MEDS: QUEtiapine FUMARATE 12.5 MG HALF-TAB PO SCH (20:43)
[2023-07-03 05:10] VITALS: BP 129/71; TEMP 97.5; O2SAT 93
[2023-07-03 07:51] LABS: BASO % 0.3 % (0.0-1.0); HEMATOCRIT 32.3 % (36.0-47.0); HEMOGLOBIN 10.8 g/dl (12.0-15.5); LYMPH # 2.2 10^3/uL (1.5-5.0); LYMPH % 34.1 % (24.0-44.0); MEAN CORPUSCULAR HGB CONC 33.4 g/dl (32.0-36.5); MEAN CORPUSCULAR VOLUME 95.6 fl (80.0-96.0); MONO # 0.5 10^3/uL (0.0-0.8); MONO % 7.1 % (2.0-8.0); NEUTROPHILS # 3.7 10^3/uL (1.5-8.5); NEUTROPHILS % 57.4 % (36.0-66.0); PLATELET COUNT, AUTOMATED 202 10^3/uL (150-450); RED BLOOD COUNT 3.38 10^6/uL (4.00-5.40); WHITE BLOOD COUNT 6.5 10^3/uL (4.0-10.0)
[2023-07-03] MEDS: LACTOBACILLUS ACIDOPHILUS CAP (BACID) PO SCH (08:00)
[2023-07-03 08:14] LABS: BLOOD UREA NITROGEN 23 MG/DL (9-23); CALCIUM LEVEL 8.3 MG/DL (8.3-10.6); CARBON DIOXIDE LEVEL 27 MMOL/L (20-31); CHLORIDE LEVEL 111 MMOL/L (98-107); CREATININE FOR GFR 0.67 MG/DL (0.55-1.30); GLOMERULAR FILTRATION RATE > 60.0 (>32); GLUCOSE, FASTING 78 MG/DL (74-106); POTASSIUM SERUM 3.5 MMOL/L (3.5-5.1); SODIUM LEVEL 144 MMOL/L (136-145)
[2023-07-03] MEDS: CEFDINIR 300 MG CAP (OMNICEF) PO SCH (13:29)
[2023-07-03 14:00] VITALS: BP 132/70; TEMP 97.9; O2SAT 93
[2023-07-03 19:29] VITALS: O2SAT 95
[2023-07-03] MEDS: ACETAMINOPHEN TAB 650MG DOSE (2X325MG) PO PRN (22:23)
[2023-07-03 22:27] VITALS: BP 133/66; TEMP 97.5; O2SAT 95
[2023-07-04 06:08] VITALS: BP 134/65; TEMP 97.5; O2SAT 97
[2023-07-04] MEDS ORDERED: MUCI600T31 PO (08:14)
[2023-07-04] MEDS ORDERED: RISATAB3 PO (08:14)
[2023-07-04] MEDS ORDERED: CEFD300CAP PO (08:14)
[2023-07-04] MEDS ORDERED: OMEP-173 PO (08:14)
[2023-07-04] MEDS ORDERED: PRED10TA2 PO (08:14)
[2023-07-04] MEDS ORDERED: DOXY100T PO (08:14)
[2023-07-04] MEDS ORDERED: VENTAER INH ×2 (08:14→12:59)
[2023-07-04 08:33] VITALS: O2SAT 100
[2023-07-04] MEDS: predniSONE 20 MG TAB PO SCH (09:34)
[2023-07-04] MEDS ORDERED: ALBU2.5V10 NEB (12:29)
== END 2023-07-04 14:35 | disposition home health service (06) | DRG 177 ==
LOC: M ED 13:09 → EDBD 13:09 → M ED INP 17:42 → M MS5PR 22:03
PROVIDERS: ADMIT Internal Medicine Nephrology; ATTEND Internal Medicine Nephrology
PROC: XW033E5 Introduction of Remdesivir Anti-infective into Peripheral Vein, Percutaneous Approach, New Technology Group 5 (ICD-10-PCS; principal; 2023-06-30)
PROC: 3E0333Z Introduction of Anti-inflammatory into Peripheral Vein, Percutaneous Approach (ICD-10-PCS; 2023-06-30)
DX: U07.1 COVID-19 (principal); J12.82 Pneumonia due to coronavirus disease 2019; J90 Pleural effusion, not elsewhere classified; I10 Essential (primary) hypertension; F32.A Depression, unspecified; M54.9 Dorsalgia, unspecified; G89.29 Other chronic pain; M79.7 Fibromyalgia; M19.90 Unspecified osteoarthritis, unspecified site; I73.9 Peripheral vascular disease, unspecified; J43.9 Emphysema, unspecified; K76.0 Fatty (change of) liver, not elsewhere classified; Z96.611 Presence of right artificial shoulder joint; F17.200 Nicotine dependence, unspecified, uncomplicated; E16.2 Hypoglycemia, unspecified; K29.70 Gastritis, unspecified, without bleeding; R26.89 Other abnormalities of gait and mobility; R29.6 Repeated falls; Z79.82 Long term (current) use of aspirin; Z79.51 Long term (current) use of inhaled steroids; Z79.52 Long term (current) use of systemic steroids; Z88.0 Allergy status to penicillin; Z95.828 Presence of other vascular implants and grafts; Z88.5 Allergy status to narcotic agent; Z90.49 Acquired absence of other specified parts of digestive tract; Z88.8 Allergy status to other drugs, medicaments and biological substances; Z90.79 Acquired absence of other genital organ(s)

== ENCOUNTER → 2024-01-05 | Outpatient (REF) ==
[~2024-01-05] MED LIST changes: +ACET300T47 PO; +ALBU2.5V10 NEB; +ASPI-655 PO; +ASPI81TA26 PO; +ATOR40TA75 PO; +CARV3.12 PO; +CEFD300CAP PO; +DIVA250T67 PO; +DOXY100T PO; +FURO20TA2 PO; +MECL-136 PO; +MUCI600T31 PO; +NIFE1TAB52 PO; +OMEP-173 PO; +PRED10TA2 PO; +PREG150C2 PO; +RISATAB3 PO; +VENTAER INH
[2024-01-05 11:10] LABS: BASO # 0.1 10^3/uL (0.0-0.2); BASO % 0.8 % (0.0-1.0); EOS # 0.1 10^3/uL (0.0-0.5); EOS % 1.6 % (0.0-3.0); HEMATOCRIT 35.1 % (36.0-47.0); LYMPH % 25.5 % (24.0-44.0); MEAN CORPUSCULAR HEMOGLOBIN 31.5 pg (27.0-33.0); MEAN CORPUSCULAR HGB CONC 31.3 g/dl (32.0-36.5); MEAN CORPUSCULAR VOLUME 100.6 fl (80.0-96.0); MONO # 0.6 10^3/uL (0.0-0.8); MONO % 7.6 % (2.0-8.0); NEUTROPHILS # 4.9 10^3/uL (1.5-8.5); PLATELET COUNT, AUTOMATED 258 10^3/uL (150-450); RED BLOOD COUNT 3.49 10^6/uL (4.00-5.40); WHITE BLOOD COUNT 7.7 10^3/uL (4.0-10.0)
[2024-01-05 11:34] LABS: ALBUMIN 2.6 G/DL (3.2-5.2); ALKALINE PHOSPHATASE 83 U/L (35-104); ALT/SGPT 12 U/L (7.0-40); AST/SGOT 12 U/L (<34); BILIRUBIN,TOTAL 0.4 MG/DL (0.3-1.2); BLOOD UREA NITROGEN 22 MG/DL (9-23); CARBON DIOXIDE LEVEL 32 MMOL/L (20-31); CHLORIDE LEVEL 104 MMOL/L (98-107); CREATININE FOR GFR 0.54 MG/DL (0.55-1.30); GLOMERULAR FILTRATION RATE > 60.0 (>32); GLUCOSE, FASTING 67 MG/DL (74-106); POTASSIUM SERUM 4.8 MMOL/L (3.5-5.1); SODIUM LEVEL 139 MMOL/L (136-145); TOTAL PROTEIN 6.3 G/DL (5.7-8.2)
== END ==
LOC: SKLAB5 08:28
PROVIDERS: ATTEND Internal Medicine
DX: I50.9 Heart failure, unspecified (principal); I11.0 Hypertensive heart disease with heart failure

== ENCOUNTER → 2024-01-12 | Outpatient (REF) ==
[2024-01-12 08:45] LABS: HEMATOCRIT 36.8 % (36.0-47.0); HEMOGLOBIN 11.9 g/dl (12.0-15.5); MEAN CORPUSCULAR HEMOGLOBIN 32.4 pg (27.0-33.0); MEAN CORPUSCULAR HGB CONC 32.3 g/dl (32.0-36.5); MEAN CORPUSCULAR VOLUME 100.3 fl (80.0-96.0); PLATELET COUNT, AUTOMATED 165 10^3/uL (150-450); RED BLOOD COUNT 3.67 10^6/uL (4.00-5.40); WHITE BLOOD COUNT 6.4 10^3/uL (4.0-10.0)
[2024-01-12 09:08] LABS: BLOOD UREA NITROGEN 27 MG/DL (9-23); CALCIUM LEVEL 8.9 MG/DL (8.3-10.6); CARBON DIOXIDE LEVEL 30 MMOL/L (20-31); CHLORIDE LEVEL 107 MMOL/L (98-107); CREATININE FOR GFR 0.52 MG/DL (0.55-1.30); GLOMERULAR FILTRATION RATE > 60.0 (>32); GLUCOSE, FASTING 71 MG/DL (74-106); POTASSIUM SERUM 4.5 MMOL/L (3.5-5.1); SODIUM LEVEL 142 MMOL/L (136-145)
== END ==
LOC: SKLAB5 07:00
PROVIDERS: ATTEND Internal Medicine
DX: I10 Essential (primary) hypertension (principal)